=== PATIENT | male | born 1980 | race Caucasian/White ===

== ENCOUNTER 2018-09-20 20:40 | Emergency (ER) | payer OTHER ==
[~2018-09-20 20:40] MED LIST: FAMO20TA28 PO; HYDR-389 PO; IBU600 PO; IBUP800T37 PO; LEVO-85 PO; LOR5 PO; LOR5/325 PO; NO MEDS; PER PO; PHEN200T32 PO; TAMS0.4C25 PO
--- NOTE | 2018-09-20 20:55 | ER Report ---
History and Physical Time Seen By MD: 20:55 Hx. of Stated Complaint: body aches fever chills, vomiting yesterday HPI/ROS CHIEF COMPLAINT: cough, vomiting, chills HISTORY OF PRESENT ILLNESS: This is a 38 year old male. He had vomiting yesterday, mild cough and body aches with fever. Mild shortness of breath. No sick contacts. He did eat some pizza prior to this and thought it might be bad pizza. No abdominal pain or diarrhea. Allergies: Coded Allergies: No Known Drug Allergies (Verified , 09/20/18) Home Meds Active Scripts Ondansetron 4 Mg Odt (ONDANSETRON 4 MG ODT) 4 Mg Tab.rapdis, 4 MG PO Q6H PRN for NAUSEA/VOMITING, #20 TAB 0 Refills Prov:ANTONY GUIDO MD 09/20/18 Ketorolac Tromethamine (KETOROLAC TROMETHAMINE) 10 Mg Tab, 10 MG PO Q6H PRN for PAIN, #12 TAB 0 Refills Prov:ANTONY GUIDO MD 09/20/18 Discontinued Reported Medications Tamsulosin Hcl (FLOMAX) 0.4 Mg Cap.er.24h, 0.4 MG PO DAILY, CAP 01/27/17 Ibuprofen (IBUPROFEN) 800 Mg Tablet, 1 TAB PO TID PRN for PAIN, #50 TAB 01/16/17 Famotidine (PEPCID) 20 Mg Tablet, 20 MG PO BID, #20 TAB 01/16/17 Levofloxacin 500 Mg Tab (LEVAQUIN 500 MG TAB) 500 Mg Tablet, 500 MG PO DAILY, TAB 01/14/17 Reviewed Nurses Notes: Yes Hx Smoking: Yes (OFF AND ON 15 YEARS 0.5 PPD, CAN OF CHEW EVERY 2 WEEK, FOR 3 YEARS) Smoking Status: Current: Every Day Smoker Hx Substance Use Disorder: No Hx Alcohol Use: No Constitutional Vital Sign - Last 24 Hours 09/20/18 09/20/18 09/20/18 09/20/18 20:47 20:55 21:00 21:10 Temp 98.6 Pulse 102 99 103 Resp 18 B/P (MAP) 120/72 112/76 (88) Pulse Ox 93 93 94 O2 Delivery Room Air 09/20/18 09/20/18 09/20/18 09/20/18 21:25 21:30 21:40 22:00 Pulse 98 98 B/P (MAP) 107/76 (86) 112/79 (90) Pulse Ox 90 89 09/20/18 09/20/18 09/20/18 09/20/18 22:10 22:25 22:30 22:35 Pulse 92 97 106 B/P (MAP) 113/70 (84) Pulse Ox 93 86 86 09/20/18 09/20/18 09/20/18 09/20/18 22:50 23:00 23:05 23:20 Pulse 95 93 88 B/P (MAP) 104/71 (82) Pulse Ox 88 87 87 09/20/18 09/20/18 23:30 23:35 Pulse 88 B/P (MAP) 101/69 (80) Pulse Ox 87 Intake and Output 09/20/18 09/20/18 09/21/18 15:00 23:00 07:00 Intake Total 1000 ml Balance 1000 ml Physical Exam General Appearance: Alert, having some distress from symptoms. Eyes: Pupils equal and round no injection. ENT: Normal oral mucosa. Moist mucous membranes. Respiratory: Chest is non tender, lungs are clear to auscultation. Cardiac: regular rate and rhythm Gastrointestinal: Abdomen is soft and non tender, no masses, bowel sounds normal. Musculoskeletal: Extremities have full range of motion. Skin: No rashes or lesions. DIFFERENTIAL DIAGNOSIS: After history and physical exam differential diagnosis was considered for symptoms of viral syndrome versus influenza. Medical Decision Making Data Points Result Diagram: 09/20/18210709/20/182107 Laboratory Hematology Test 09/20/18 21:06 09/20/18 21:08 Influenza Virus Type A (PCR) Negative (NEGATIVE) Influenza Virus Type B (PCR) Negative (NEGATIVE) Red Blood Count 5.99 M/uL (4.00-5.60) Mean Corpuscular Volume 85.7 fL (80.0-96.0) Mean Corpuscular Hemoglobin 30.1 pg (26.0-33.0) Mean Corpuscular Hemoglobin Concent 35.1 g/dL (32.0-36.0) Red Cell Distribution Width 13.1 % (11.5-14.5) Mean Platelet Volume 8.5 fL (7.2-11.1) Neutrophils (%) (Auto) 75.1 % (39.4-72.5) Lymphocytes (%) (Auto) 17.9 % (17.6-49.6) Monocytes (%) (Auto) 6.1 % (4.1-12.4) Eosinophils (%) (Auto) 0.3 % (0.4-6.7) Basophils (%) (Auto) 0.6 % (0.3-1.4) Nucleated RBC Relative Count (auto) 0.0 /100WBC Neutrophils # (Auto) 4.3 K/uL (2.0-7.4) Lymphocytes # (Auto) 1.0 K/uL (1.3-3.6) Monocytes # (Auto) 0.3 K/uL (0.3-1.0) Eosinophils # (Auto) 0.0 K/uL (0.0-0.5) Basophils # (Auto) 0.0 K/uL (0.0-0.1) Nucleated RBC Absolute Count (auto) 0.00 K/uL Sodium Level 131 mmol/L (137-145) Potassium Level 3.7 mmol/L (3.5-5.0) Chloride Level 101 mmol/L (98-107) Carbon Dioxide Level 19 mmol/L (22-30) Blood Urea Nitrogen 17 mg/dl (9-21) Creatinine 1.10 mg/dl (0.66-1.25) Glomerular Filtration Rate Calc > 60.0 Random Glucose 103 mg/dl (75-110) Calcium Level 8.6 mg/dl (8.4-10.2) Total Bilirubin 2.9 mg/dl (0.2-1.3) Aspartate Amino Transf (AST/SGOT) 23 U/L (0-35) Alanine Aminotransferase (ALT/SGPT) 36 U/L (0-56) Alkaline Phosphatase 87 U/L (0-126) Total Protein 7.1 g/dl (6.3-8.2) Albumin 4.1 g/dl (3.5-5.0) Chemistry Test 09/20/18 21:06 09/20/18 21:08 Influenza Virus Type A (PCR) Negative (NEGATIVE) Influenza Virus Type B (PCR) Negative (NEGATIVE) White Blood Count 5.7 k/uL (4.5-11.0) Red Blood Count 5.99 M/uL (4.00-5.60) Hemoglobin 18.0 g/dL (14.0-18.0) Hematocrit 51.3 % (42.0-52.0) Mean Corpuscular Volume 85.7 fL (80.0-96.0) Mean Corpuscular Hemoglobin 30.1 pg (26.0-33.0) Mean Corpuscular Hemoglobin Concent 35.1 g/dL (32.0-36.0) Red Cell Distribution Width 13.1 % (11.5-14.5) Platelet Count 160 K/uL (150-450) Mean Platelet Volume 8.5 fL (7.2-11.1) Neutrophils (%) (Auto) 75.1 % (39.4-72.5) Lymphocytes (%) (Auto) 17.9 % (17.6-49.6) Monocytes (%) (Auto) 6.1 % (4.1-12.4) Eosinophils (%) (Auto) 0.3 % (0.4-6.7) Basophils (%) (Auto) 0.6 % (0.3-1.4) Nucleated RBC Relative Count (auto) 0.0 /100WBC Neutrophils # (Auto) 4.3 K/uL (2.0-7.4) Lymphocytes # (Auto) 1.0 K/uL (1.3-3.6) Monocytes # (Auto) 0.3 K/uL (0.3-1.0) Eosinophils # (Auto) 0.0 K/uL (0.0-0.5) Basophils # (Auto) 0.0 K/uL (0.0-0.1) Nucleated RBC Absolute Count (auto) 0.00 K/uL Glomerular Filtration Rate Calc > 60.0 Calcium Level 8.6 mg/dl (8.4-10.2) Total Bilirubin 2.9 mg/dl (0.2-1.3) Aspartate Amino Transf (AST/SGOT) 23 U/L (0-35) Alanine Aminotransferase (ALT/SGPT) 36 U/L (0-56) Alkaline Phosphatase 87 U/L (0-126) Total Protein 7.1 g/dl (6.3-8.2) Albumin 4.1 g/dl (3.5-5.0) EKG/Imaging Imaging TWO VIEW CHEST 09/20/2018 8:58 PM. INDICATION: cough, fever COMPARISON: None. FINDINGS: Lungs are well-expanded. The lungs are clear. No pneumothorax or pleural effusion. Pulmonary vasculature is unremarkable. Heart size is normal. IMPRESSION: No acute abnormality. Report Dictated By: Carlton Camarillo MD at 09/20/2018 10:15 PM ED Course/Re-evaluation Clinical Indication for ER IV: Hydration, IV Access ED Course Influenza negative. Labs unremarkable. Chest x-ray negative. Patient felt better with IV fluids, Toradol, and Zofran. Decision to Disposition Date: Sep 20, 2018 Decision to Disposition Time: 23:30 Depart Departure Latest Vital Signs Vital Signs Date Time Temp Pulse Resp B/P (MAP) Pulse Ox O2 Delivery O2 Flow Rate FiO2 09/20/18 23:35 88 87 09/20/18 23:30 101/69 (80) 09/20/18 20:47 98.6 18 Room Air Impression: Primary Impression: Viral upper respiratory infection Condition: Improved Disposition: HOME OR SELF-CARE New Scripts Ondansetron 4 Mg Odt (ONDANSETRON 4 MG ODT) 4 Mg Tab.rapdis 4 MG PO Q6H PRN for NAUSEA/VOMITING, #20 TAB 0 Refills Prov: ANTONY GUIDO MD 09/20/18 Ketorolac Tromethamine (KETOROLAC TROMETHAMINE) 10 Mg Tab 10 MG PO Q6H PRN for PAIN, #12 TAB 0 Refills Prov: ANTONY GUIDO MD 09/20/18 Patient Instructions: Upper Respiratory Infection (ED) Additional Instructions: Rest and increase fluid intake. Take Toradol 10mg, one every 6 hours as needed for pain. This is an NSAID medicine similar to Ibuprofen or Aleve, so do not take any of these medicines while taking Toradol. It is okay to take Tylenol if needed for pain. We are also providing a prescription for Zofran 4mg, one every 6 hours as needed for vomiting. ANTONY GUIDO MD Sep 20, 2018 20:55
[2018-09-20 21:15] LABS: PLATELET COUNT, AUTOMATED 160 K/uL (150-450)
[2018-09-20] MEDS ORDERED: ONDANSETRON 4 MG/2 ML VIAL IVP ONE (21:55)
[2018-09-20] MEDS ORDERED: KETOROLAC 30 MG/ML VIAL IVP ONE (21:55)
[2018-09-20] MEDS ORDERED: NS(*) 0.9% 1000 ML BAG 1,000 ML IV ONE (21:55)
--- NOTE | 2018-09-20 22:20 | RADIOLOGY IMAGING REPORT ---
FACILITY: [facility] - [place] PATIENT NAME: Gennaro Hairston : 1980 MR: [id number] V: [id number] EXAM DATE: ORDERING PHYSICIAN: ANTONY GUIDO TECHNOLOGIST: Location: [facility] - [place] Patient: Gennaro Hairston : 1980 Visit/Account:[id number] Date of Sevice: 09/20/2018 TWO VIEW CHEST 09/20/2018 8:58 PM. INDICATION: cough, fever COMPARISON: None. FINDINGS: Lungs are well-expanded. The lungs are clear. No pneumothorax or pleural effusion. Pulmo nary vasculature is unremarkable. Heart size is normal. IMPRESSION: No acute abnormality. Report Dictated By: Carlton Camarillo MD at 09/20/2018 10:15 PM Report E-Signed By: Carlton Camarillo MD at 09/20/2018 10:15 PM WSN:[id number]
[2018-09-20 23:30] VITALS: BP 101/69
[2018-09-20] MEDS ORDERED: ONDANSETRON 4 MG ODT TH SL ONE (23:30)
[2018-09-20] MEDS ORDERED: KETOROLAC TROM 10 MG TAB TH PO ONE (23:30)
[2018-09-20] MEDS ORDERED: ONDA4TAB9 PO (23:33)
[2018-09-20] MEDS ORDERED: KET10 PO (23:33)
== END 2018-09-20 23:46 | disposition home or self-care (01) ==
LOC: ER 21:07
DX: J06.9 Acute upper respiratory infection, unspecified (principal)
CPT/HCPCS: 36415; 71046; 85025; 87502; 96361; 96374; 96375; 99284; J1885; J2405; J7030; S0119; 82040; 82247; 82310; 82374; 82435; 82565; 82947; 84075; 84132; 84155; 84295; 84450; 84460; 84520